=== PATIENT | male | born 1985 | race Caucasian/White ===

== ENCOUNTER 2016-08-17 13:37 | Emergency (ER) | payer SELFPAY ==
[~2016-08-17] VITALS: Ht 175.3 cm; Wt 95.0 kg
[~2016-08-17 13:37] MED LIST: DICL75 PO; TRAM50 PO
[2016-08-17 13:47] VITALS: BP 149/108; PULSE 110; RESP 17; TEMP 98.7; O2SAT 97
--- NOTE | 2016-08-17 14:07 | PD ---
HPI Chief Complaint: Edema Time Seen by Provider: 13:55 Travel History International Travel<30 days: No Contact w/Intl Traveler<30days: No Traveled to known affect area: No History of Present Illness HPI The patient is a 31-year-old male who presents emergency department for bilateral lower extremity edema. The patient has a history of superficial varicosities, has had them for several years, however, recently has had increasing varicosities and pain to lower extremities. 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 He denies any recent hospitalizations, surgeries, prolonged travel, or previous history of DVT. However, patient is concerned that the increased varicosities bilateral secondary to DVTs. The patient denies any chest pain, shortness of breath, or redness to lower extremities. Symptoms are mild to moderate, have been ongoing , and there are no current alleviating factors. 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 PFSH Past Medical History Diminished Hearing: No Social History Alcohol Use: No Tobacco Use: Yes Substance Use: Yes Allergies-Medications (Allergen,Severity, Reaction): Coded Allergies: No Known Allergies (Verified , 08/17/16) Reported Meds & Prescriptions Reported Meds & Active Scripts Active No Active Prescriptions or Reported Medications Review of Systems Except as stated in HPI: all other systems reviewed are Neg General / Constitutional: No: Fever Cardiovascular: No: Chest Pain or Discomfort Respiratory: No: Shortness of Breath Musculoskeletal: Positive: Edema, Pain Skin: No Other (no erythema) Physical Exam Narrative GENERAL: Awake, alert, pleasant 31-year-old male who appears his stated age and is in no acute respiratory distress. SKIN: Focused skin assessment warm/dry. No erythema of the lower extremity is noted. HEAD: Atraumatic. Normocephalic. EYES: No injection or drainage. ENT: No nasal bleeding or discharge. Mucous membranes pink and moist. NECK: Trachea midline. No JVD. MUSCULOSKELETAL: No obvious deformities. No clubbing. No cyanosis. No edema. The patient has superficial varicosities of the calves bilateral, negative Homans sign. NEUROLOGICAL: Awake and alert. No obvious cranial nerve deficits. Motor grossly within normal limits. Normal speech. PSYCHIATRIC: Appropriate mood and affect; insight and judgment normal. Data Data Last Documented VS Vital Signs Date Time Temp Pulse Resp B/P Pulse Ox O2 Delivery O2 Flow Rate FiO2 08/17/16 14:22 110 16 08/17/16 13:47 98.7 149/108 97 Orders Us Leg Venous Doppler Bilat (08/17/16 ) MDM Medical Decision Making Medical Screen Exam Complete: Yes Emergency Medical Condition: Yes Medical Record Reviewed: Yes Interpretation(s) Ultrasound lower extremities is negative for DVT Differential Diagnosis Differential diagnosis includes superficial varicosities, DVT, thrombophlebitis , valvular insufficiency, dependent edema. Narrative Course Ultrasound of the lower extremities was ordered, as patient is worried and concerned for DVT. Ultrasound is negative for DVT. The patient will be provided a copy of his ultrasound report. He is advised to follow-up with vascular surgery if his superficial varicosities continued to be bothersome. Compression hose as needed. Diagnosis Primary Impression: Superficial varicosities Qualified Code: I83.93 - Superficial varicosities, bilateral Additional Instructions: Compression stockings as directed. Follow-up with vascular surgery if they continue to be bothersome. Please provide the patient a copy of ultrasound results at discharge. Med/Other Pt SpecificInfo: No Change to Meds Scripts No Active Prescriptions or Reported Meds Disposition: 01 DISCHARGE HOME Condition: Stable Bar Lee MD Aug 17, 2016 14:07
--- NOTE | 2016-08-17 15:59 | RADHPO ---
EXAM DATE/TIME: 08/17/2016 15:12 [facility] COMPARISON: No previous studies available for comparison. INDICATIONS : Bilateral lower leg pain and swelling. Superficial varicosities. MEDICAL HISTORY : Bilateral lower leg pain and swelling. SURGICAL HISTORY : None. ENCOUNTER: Initial ACUITY: 1 day PAIN SCORE: 0/10 LOCATION: Bilateral leg. TECHNIQUE: Venous ultrasound of the left and right leg was performed from the inguinal ligament t o the proximal calf. Real-time, color Doppler and spectral tracing, compression and augmentation pavan hniques were used. FINDINGS: RIGHT LEG: There is normal compressibility of the deep venous system from the inguinal region to the proximal calf. No echogenic clot is seen in the lumen of the common femoral, femoral, popliteal, and posterior tibial veins. There is a normal response of the venous system to proximal and distal augmentation and respiration. There are multiple varicose veins which appear patent. LEFT LEG: There is normal compressibility of the deep venous system from the inguinal region to t he proximal calf. No echogenic clot is seen in the lumen of the common femoral, femoral, popliteal, and posterior tibial veins. There is a normal response of the venous system to proximal and distal a ugmentation and respiration. There are multiple varicose veins which appear patent. CONCLUSION: 1. No evidence of deep venous thrombosis. 2. Multiple varicose veins which appear patent. Clemente Blackmon MD on August 17, 2016 at 15:56 Board Certified Radiologist. This report was verified electronically.
[2016-08-17 16:05] VITALS: BP 145/91; PULSE 78; RESP 14; O2SAT 99
== END 2016-08-17 16:10 | disposition home or self-care (01) ==
LOC: PHED 13:37
DX: I83.893 Varicose veins of bilateral lower extremities with other complications (principal); Z72.0 Tobacco use
CPT/HCPCS: 93970

== ENCOUNTER 2017-01-22 13:21 | Emergency (ER) | payer OTHER ==
[~2017-01-22] VITALS: Ht 177.8 cm; Wt 100.0 kg
[2017-01-22 13:22] VITALS: BP 154/89; PULSE 118; RESP 24; TEMP 98.4; O2SAT 99
--- NOTE | 2017-01-22 13:25 | PD ---
Physical Exam Date Seen by Provider: Jan 22, 2017 Time Seen by Provider: 13:23 Data Data Last Documented VS Vital Signs Date Time Temp Pulse Resp B/P (MAP) Pulse Ox O2 Delivery O2 Flow Rate FiO2 01/22/17 13:22 98.4 118 24 154/89 (110) 99 MDM Supervised Visit with [facility]: No Narrative Course 31-year-old right-hand dominant male presents to the ED for evaluation of left arm pain. Sudden onset while the patient was lifting 501 pounds at a weight lifting competition just before arrival. He states that he felt a "pop" and his biceps muscle "rolled up in his arm." Vitals reviewed. Patient seen and triaged, awaiting bed placement. Scripts No Active Prescriptions or Reported Meds Jenny Tran Jan 22, 2017 13:25
[2017-01-22] MEDS ORDERED: PERC5TAB12 PO (15:26)
--- NOTE | 2017-01-22 15:34 | PD ---
HPI Chief Complaint: Musculoskeletal Complaint Time Seen by Provider: 14:50 Travel History International Travel<30 days: No Contact w/Intl Traveler<30days: No Traveled to known affect area: No History of Present Illness HPI This patient complains of injury to his left arm. He was doing weight lifting and had a large amount of weight above his head when he felt a pop in his left distal bicep. Now movement of the left bicep produces pain. No direct trauma to it. Duration 2 hours. Symptoms severity is moderate. Worse with movement PFSH Past Medical History Medical History: Denies Significant Hx Diminished Hearing: No Tetanus Vaccination: > 5 Years Influenza Vaccination: No Past Surgical History Eye Surgery: Yes Social History Alcohol Use: No Tobacco Use: No Substance Use: No Allergies-Medications (Allergen,Severity, Reaction): Coded Allergies: No Known Allergies (Verified , 01/22/17) Reported Meds & Prescriptions Reported Meds & Active Scripts Active Percocet (Oxycodone-Acetaminophen) 5-325 mg Tab 1 Tab PO Q6H PRN Review of Systems General / Constitutional: No: Fever HENT: No: Headaches Cardiovascular: No: Chest Pain or Discomfort Respiratory: No: Cough Physical Exam Narrative SKIN: Focused skin assessment reveals no rash or ulcers. Skin is warm and dry. Palpation shows no induration or nodules. Psych: Normal mood and affect. Normal insight and judgment. Left arm: Patient has some tenderness at the distal bicipital insertion. No erythema or warmth or bruising. No bony deformity. Biceps seems to retract back when he flexes his arm. Data Data Last Documented VS Vital Signs Date Time Temp Pulse Resp B/P (MAP) Pulse Ox O2 Delivery O2 Flow Rate FiO2 01/22/17 13:22 98.4 118 24 154/89 (110) 99 MDM Medical Decision Making Medical Screen Exam Complete: Yes Emergency Medical Condition: Yes Medical Record Reviewed: Yes Differential Diagnosis Biceps tear, biceps tendon injury, soft tissue strain Narrative Course I have reviewed the patient's electronic medical record. Presentation here seems most consistent with an acute left biceps tear. He should ice and rest it. Pain medicine provided. He should follow-up with orthopedist. He doesn't want to flex his arm and does not want a sling. Diagnosis Primary Impression: Traumatic partial tear of left biceps tendon Qualified Codes: S46.212A - Strain of muscle, fascia and tendon of other parts of biceps, left arm, initial encounter Additional Instructions: Rest and ice left biceps Call orthopedist for follow-up The patient was warned about potential sedation for the medications they will receive on prescription. Med/Other Pt SpecificInfo: Prescription(s) given Scripts Oxycodone-Acetaminophen (Percocet) 5-325 mg Tab 1 TAB PO Q6H Y for PAIN, #20 TAB 0 Refills Prov: Ed Lindo MD 01/22/17 Disposition: 01 DISCHARGE HOME Condition: Stable Ed Lindo MD Jan 22, 2017 15:34
== END 2017-01-22 16:05 | disposition home or self-care (01) ==
LOC: NEPD 13:21
DX: S46.212A Strain of muscle, fascia and tendon of other parts of biceps, left arm, initial encounter (principal); X50.0XXA Overexertion from strenuous movement or load, initial encounter; Y93.B3 Activity, free weights
CPT/HCPCS: 99283

== ENCOUNTER → 2017-02-03 | Day surgery (SDC) | payer OTHER ==
[~2017-02-03] MED LIST changes: +BUPIVACAINE/EPINEPHRINE 0.5% PF 10 ML VIAL ONE; -DICL75 PO; +MIDAZOLAM HCL 5 MG/ML VIAL (1 ML) ONE; +ONDANSETRON HCL 4 MG/2 ML VIAL IV PUSH ONE; +PERC5TAB12 PO; +PROPOFOL 200 MG/20 ML AMP IV ONE; -TRAM50 PO; +ceFAZolin INJ 1,000 MG VIAL ONE
--- NOTE | 2017-02-03 19:09 | MP ---
cc: TAWANNA WOODRUFF DATE OF SURGERY 02/03/2017 PREOPERATIVE DIAGNOSIS Left distal biceps tendon rupture. POSTOPERATIVE DIAGNOSIS Left distal biceps tendon rupture. PROCEDURE Left distal biceps tendon repair using Arthrex biceps button and interference screw. ANESTHESIA General. SURGEON Mitchell Woodruff MD BEATER TENDER SURGEON KATIE Villalobos. ANESTHESIA General COMPLICATIONS None known. INDICATION Reddy Ceballos is a 31-year-old male who was lifting 500 pounds when he had a rupture occur in his left distal biceps tendon. He had further workup with plain x-rays which were negative and an MRI scan which showed a biceps tendon rupture. The options of treatment were discussed. He was indicated for surgical repair. Risks, benefits thoroughly discussed and a detailed informed consent was obtained. The certified first assistant, Tashi Peoples, is an advanced registered nurse practitioner whose skill set was medically necessary for the performance of the operation. PROCEDURE IN DETAIL The patient brought to the operating room. He was placed under general anesthetic. The left upper extremity was prepped and draped in usual sterile fashion. IV antibiotics were given. Time-out was completed. The limb was exsanguinated and tourniquet inflated to 250 mmHg. Anterior approach to the distal biceps tendon with a 4 cm transverse incision 3 cm distal to the antecubital fossa. We proceeded down and dissected out the vein, mobilized this and then traversed the fascial level and then retracted the muscles and dissected superiorly until we identified the biceps tendon. This was pulled from the incision with the elbow in the flexed position. The tendon was completely ruptured off of the distal attachment site. We trimmed the frayed distal edges and then used a whip stitch going up one side approximately [address] up to bicipital muscular junction and then down the other side and then provisionally fixed to the biceps button. At this point, we did gentle dissection distally and we could see where the tendon and disrupted directly off of the radial tuberosity and we placed our deep retractors and then proceeded with our guide pin and then over reaming and then proceeded to fixate the biceps distally with the biceps button and pulled this down into position and then placed our biointerference screw with excellent fixation and then tied this cartridge loading operator with one suture through the screw and one outside the screw and then additionally passed one limb through the biceps tendon itself again and then tied this down. At this point, we let the tourniquet down. We again were very diligent on irrigating out with copious amounts if irrigation and we had excellent hemostasis. We proceeded to close in layers of absorbable suture, subcuticular on the skin. Steri-Strips applied. Sterile dressing applied. The patient was awaken and returned to recovery room in stable condition. MD GAGE Thomas/ /2:38 PM /6:55 PM
== END | disposition home or self-care (01) ==
LOC: ESDC 10:15
PROVIDERS: ATTEND Orthopaedic Surgery Sports Medicine
DX: S46.212A Strain of muscle, fascia and tendon of other parts of biceps, left arm, initial encounter (principal)
CPT/HCPCS: 01710; 01991; 24341; 64415; C1713; J0690; J2250; J2405